=== PATIENT | male | born 1965 | race Caucasian/White ===

== ENCOUNTER → 2022-10-06 | Outpatient (CLI) | payer OTHER | LOC: M LABSMTC 08:25 | PROVIDERS: ATTEND Anesthesiology | DX: Z01.812 Encounter for preprocedural laboratory examination (principal); Z20.822 Contact with and (suspected) exposure to COVID-19 ==

== ENCOUNTER 2022-10-10 08:46 | Day surgery (SDC) | payer OTHER ==
[~2022-10-10] VITALS: Ht 177.8 cm; Wt 94.8 kg
[~2022-10-10 08:46] MED LIST: AMIT50TA PO; AMLO1TAB25 PO; GABA-1171 PO
[2022-10-10] MEDS ORDERED: LR 1,000 ML IV SCH (09:10)
[2022-10-10] MEDS ORDERED: IPRATROPIUM 0.5MG/ALBUTEROL 2.5MG INH SOL UD 3ML (DUONEB) NEB ONE (09:25)
[2022-10-10] MEDS ORDERED: MIDAZOLAM INJ 2MG/2ML VIAL As Ordered ONE (09:56)
[2022-10-10] MEDS ORDERED: propofoL 200 MG/20 ML VIAL As Ordered ONE (09:57)
[2022-10-10] MEDS ORDERED: LIDOCAINE 2% 100MG/5ML SDV (FOR ANES.) As Ordered ONE (09:57)
[2022-10-10] MEDS ORDERED: KETOROLAC 60MG 2ML VIAL As Ordered ONE (09:57)
[2022-10-10] MEDS ORDERED: ONDANSETRON 4MG 2ML VIAL As Ordered ONE (09:57)
[2022-10-10] MEDS ORDERED: fentaNYL 100 MCG/2 ML INJECTION As Ordered ONE (09:57)
[2022-10-10] MEDS ORDERED: ACETAMINOPHEN 1000MG 100ML IV BAG As Ordered ONE (09:57)
[2022-10-10] MEDS ORDERED: BACITRACIN OINTMENT 30GM TUBE As Ordered ONE (09:58)
[2022-10-10] MEDS ORDERED: BUPIVACAINE HCL 0.25% 30ML VIAL As Ordered ONE (09:58)
[2022-10-10] MEDS ORDERED: ceFAZolin SOD 2 GM in IV 1 EA IV ONE (10:15)
[2022-10-10] MEDS ORDERED: ceFAZolin 2 GM/D5W 50 ML IV BAG As Ordered ONE (10:16)
[2022-10-10] MEDS ORDERED: MORPHINE 2 MG/ML 1ML VIAL IV PRN (11:00)
[2022-10-10] MEDS ORDERED: ONDANSETRON 4MG 2ML VIAL IV PRN (11:00)
[2022-10-10] MEDS ORDERED: oxyCODONE 5MG TAB PO PRN (11:00)
[2022-10-10] MEDS ORDERED: fentaNYL 100 MCG/2 ML INJECTION IV PRN (11:00)
[2022-10-10 12:34] VITALS: BP 135/92
== END 2022-10-10 12:41 | disposition home or self-care (01) ==
LOC: M SDC 08:46
PROVIDERS: ATTEND Orthopaedic Surgery Hand Surgery
DX: G56.01 Carpal tunnel syndrome, right upper limb (principal); L72.0 Epidermal cyst; I10 Essential (primary) hypertension; F17.200 Nicotine dependence, unspecified, uncomplicated
CPT/HCPCS: 11400; 64721; 88305; J0131; J0690; J1100; J1885; J2250; J2405; J3010

== ENCOUNTER → 2022-11-06 | Outpatient (CLI) | payer OTHER | LOC: M SOG 09:20 | PROVIDERS: ATTEND Physician Assistant | DX: M25.511 Pain in right shoulder (principal); Z87.81 Personal history of (healed) traumatic fracture ==

== ENCOUNTER → 2022-11-06 | Outpatient (CLI) | payer OTHER | LOC: M RAD 16:03 | PROVIDERS: ATTEND Orthopaedic Surgery Hand Surgery | DX: M79.604 Pain in right leg (principal); M79.605 Pain in left leg; M25.511 Pain in right shoulder ==

== ENCOUNTER → 2022-12-04 | Outpatient (CLI) | payer OTHER | LOC: M SOG 12:50 | PROVIDERS: ATTEND Orthopaedic Surgery | DX: Z47.89 Encounter for other orthopedic aftercare (principal); S82.401A Unspecified fracture of shaft of right fibula, initial encounter for closed fracture; S82.301A Unspecified fracture of lower end of right tibia, initial encounter for closed fracture; M79.661 Pain in right lower leg ==

== ENCOUNTER 2022-12-23 13:23 | Day surgery (SDC) | payer OTHER ==
[~2022-12-23] VITALS: Ht 177.8 cm; Wt 93.0 kg
[~2022-12-23 13:23] MED LIST changes: +BUPR15TASR PO; +ZONI25CA13 PO
[2022-12-23] MEDS ORDERED: LR 1,000 ML IV SCH (13:55)
[2022-12-23] MEDS ORDERED: SCOPOLAMINE 1MG TRANSDERMAL PATCH As Ordered ONE (14:22)
[2022-12-23] MEDS ORDERED: ONDANSETRON 4MG 2ML VIAL As Ordered ONE (15:06)
[2022-12-23] MEDS ORDERED: LIDOCAINE 2% 100MG/5ML SDV (FOR ANES.) As Ordered ONE (15:06)
[2022-12-23] MEDS ORDERED: ROCURONIUM BROMIDE 50MG/5ML VIAL As Ordered ONE ×2 (15:06→16:34)
[2022-12-23] MEDS ORDERED: ACETAMINOPHEN 1000MG 100ML IV BAG As Ordered ONE (15:06)
[2022-12-23] MEDS ORDERED: fentaNYL 250 MCG/5 ML INJECTION As Ordered ONE (15:06)
[2022-12-23] MEDS ORDERED: propofoL 200 MG/20 ML VIAL As Ordered ONE (15:06)
[2022-12-23] MEDS ORDERED: METOCLOPRAMIDE INJ 10MG/2ML VIAL As Ordered ONE (15:06)
[2022-12-23] MEDS ORDERED: SUGAMMADEX SODIUM 500 MG/5 ML VIAL (BRIDION) As Ordered ONE (15:06)
[2022-12-23] MEDS ORDERED: MIDAZOLAM INJ 2MG/2ML VIAL As Ordered ONE (15:06)
[2022-12-23] MEDS ORDERED: HYDROmorphone HCL 2MG/ML 1ML VIAL As Ordered ONE (15:15)
[2022-12-23] MEDS ORDERED: ceFAZolin 2 GM/D5W 50 ML IV BAG As Ordered ONE (15:20)
[2022-12-23] MEDS ORDERED: OXYC-517 PO ×2 (17:45→19:29)
[2022-12-23] MEDS ORDERED: fentaNYL 100 MCG/2 ML INJECTION As Ordered ONE (17:47)
[2022-12-23] MEDS ORDERED: oxyCODONE 5MG TAB PO PRN (17:50)
[2022-12-23] MEDS ORDERED: ONDANSETRON 4MG 2ML VIAL IV PRN (17:50)
[2022-12-23] MEDS ORDERED: MEPERIDINE 25 MG/ML 1ML VIAL IV PRN (17:50)
[2022-12-23] MEDS: fentaNYL 100 MCG/2 ML INJECTION IV PRN ×4 (17:55→18:14)
[2022-12-23] MEDS: HYDROMORPHONE HCL 0.5 MG/ 0.5 ML SYRINGE IV PRN ×2 (18:20→18:27)
[2022-12-23 18:40] VITALS: BP 120/80; TEMP 98; O2SAT 95
== END 2022-12-23 19:40 | disposition home or self-care (01) ==
LOC: M SDC 13:23
PROVIDERS: ATTEND Orthopaedic Surgery
DX: Z47.2 Encounter for removal of internal fixation device (principal); S82.202D Unspecified fracture of shaft of left tibia, subsequent encounter for closed fracture with routine healing; S82.201D Unspecified fracture of shaft of right tibia, subsequent encounter for closed fracture with routine healing; F17.210 Nicotine dependence, cigarettes, uncomplicated; I10 Essential (primary) hypertension; R51.9 Headache, unspecified; H81.10 Benign paroxysmal vertigo, unspecified ear; Z79.899 Other long term (current) drug therapy; Z87.820 Personal history of traumatic brain injury; Z88.0 Allergy status to penicillin
CPT/HCPCS: 20680; 76000; 87070; 87075; 87205; J0131; J0690; J1100; J1170; J2250; J2405; J2765; J3010

== ENCOUNTER → 2022-12-31 | Outpatient (CLI) | payer OTHER ==
[~2022-12-31] MED LIST changes: +OXYC-517 PO
== END ==
LOC: M SOG 08:49
PROVIDERS: ATTEND Orthopaedic Surgery
DX: M79.662 Pain in left lower leg (principal); M79.661 Pain in right lower leg; M17.11 Unilateral primary osteoarthritis, right knee; M19.071 Primary osteoarthritis, right ankle and foot

== ENCOUNTER → 2023-01-16 | Outpatient (CLI) | payer OTHER | LOC: M PLARAD 15:10 | PROVIDERS: ATTEND Orthopaedic Surgery Hand Surgery | DX: M25.511 Pain in right shoulder (principal) ==

== ENCOUNTER → 2023-02-11 | Outpatient (CLI) | payer OTHER | LOC: M SOG 08:29 | PROVIDERS: ATTEND Orthopaedic Surgery | DX: Z87.81 Personal history of (healed) traumatic fracture (principal); M79.661 Pain in right lower leg; M79.662 Pain in left lower leg ==

== ENCOUNTER → 2023-07-10 | Outpatient (CLI) | payer OTHER ==
[~2023-07-10] MED LIST changes: +CODE15TA PO; +OMEP1CAP73 PO; +SERT25TA21 PO
== END ==
LOC: M SOG 07:57
PROVIDERS: ATTEND Physician Assistant
DX: M25.532 Pain in left wrist (principal)

== ENCOUNTER → 2023-10-01 | Outpatient (CLI) | payer OTHER ==
[~2023-10-01] MED LIST changes: +CELE0.09 PO; +HYDR12.55 PO; +OMEP-173 PO; +ROSU10TA6 PO
== END ==
LOC: M SOG 14:49
PROVIDERS: ATTEND Student in an Organized Health Care Education/Training Program
DX: M25.512 Pain in left shoulder (principal); M75.121 Complete rotator cuff tear or rupture of right shoulder, not specified as traumatic; M19.011 Primary osteoarthritis, right shoulder; M19.012 Primary osteoarthritis, left shoulder

== ENCOUNTER → 2023-11-06 | Outpatient (CLI) | payer OTHER | LOC: M PLARAD 10:53 | PROVIDERS: ATTEND Student in an Organized Health Care Education/Training Program | DX: M25.512 Pain in left shoulder (principal); S46.011A Strain of muscle(s) and tendon(s) of the rotator cuff of right shoulder, initial encounter; Y93.9 Activity, unspecified; Y92.9 Unspecified place or not applicable ==